=== PATIENT | female | born 1975 | race Caucasian/White ===

== ENCOUNTER 2020-09-26 15:25 | Emergency (ER) | payer OTHER ==
[2020-09-26 15:33] VITALS: RESP 18
[2020-09-26] MEDS ORDERED: SODIUM CHLORIDE 0.9% 1,000 ML IV STA (15:51)
[2020-09-26] MEDS ORDERED: KETOROLAC 15 MG/ML 1 ML VIAL IVP STA (15:51)
[2020-09-26 16:07] LABS: Basophils # (A) 0.1 k/uL (0-0.2); Basophils % (A) 0 %; Eosinophils # (A) 0.3 k/uL (0-0.7); Eosinophils % (A) 2 %; HCT 44.8 % (34.0-46.0); HGB 14.7 gm/dL (11.4-16.0); Lymphocytes # (A) 2.6 k/uL (1.0-4.8); Lymphocytes % (A) 20 %; MCH 30.2 pg (25.0-35.0); MCHC 32.9 g/dL (31.0-37.0); MCV 91.9 fL (80.0-100.0); Mean Platelet Volume 6.4; Monocytes # (A) 0.5 k/uL (0-1.0); Monocytes % (A) 4 %; Neutrophils # (A) 9.5 k/uL (1.3-7.7); Neutrophils % (A) 73 %; Platelet Count 368 k/uL (150-450); RBC 4.87 m/uL (3.80-5.40); RDW 13.6 % (11.5-15.5); WBC 13.1 k/uL (3.8-10.6)
[2020-09-26 16:19] LABS: ALT 22 U/L (4-34); AST 30 U/L (14-36); African American GFR (CKD) >90 (>60 ml/min/1.73 sqM); Albumin 5.1 g/dL (3.5-5.0); Alkaline Phosphatase 72 U/L (38-126); Anion Gap 9 mmol/L; Blood Urea Nitrogen 16 mg/dL (7-17); Calcium 10.3 mg/dL (8.4-10.2); Carbon Dioxide 25 mmol/L (22-30); Chloride 104 mmol/L (98-107); Glucose 132 mg/dL (74-99); Lipase 64 U/L (23-300); Non-African American GFR(CKD) 82 (>60 ml/min/1.73 sqM); Potassium 4.5 mmol/L (3.5-5.1); Sodium 138 mmol/L (137-145); Total Bilirubin 0.5 mg/dL (0.2-1.3); Total Protein 8.6 g/dL (6.3-8.2)
--- NOTE | 2020-09-26 16:56 | CT ---
EXAMINATION TYPE: CT abdomen pelvis wo con DATE OF EXAM: 09/26/2020 COMPARISON: None HISTORY: Right flank pain. CT DLP: 496 mGycm Automated exposure control for dose reduction was used. Images obtained from the diaphragm to the floor the pelvis without contrast. Lung bases are clear. There is no pleural effusion. Heart is normal. There is no pericardial effusion . Liver spleen stomach pancreas appear normal. There is high attenuation in the gallbladder. The bile d ucts are not dilated. There is no adrenal mass. Kidneys have normal size and contour. There is no hydronephrosis. Ureters a re not dilated. There is no retroperitoneal adenopathy. Bladder distends smoothly. There is no inguin al hernia. There is no free fluid in the pelvis. Appendix is posterior and appears normal. Uterus is anteverted. There is no evidence of a pelvic mass. Lumbar vertebra have normal alignment. Disc spaces are fairly normal. Bony pelvis is intact. Hip joints appear intact. There is 6 mm calcification in the pelvis that is probably within the right side of the urinary bladd er. This could be recently passed stone. IMPRESSION: Calcification in the urinary bladder could be recently passed stone. The right kidney shows no hydron ephrosis or hydroureter. Normal appendix. High attenuation in the gallbladder of uncertain significance. This could be vicarious contrast excre tion or related to dense bile containing calcium.
[2020-09-26 17:51] LABS: Amorphous Sediment,Urine Occasional /hpf; Appearance,Urine Clear (Clear); Bilirubin,Urine Negative (Negative); Blood,Urine Trace (Negative); Color,Urine Yellow; Glucose,Urine (UA) Negative (Negative); Hyaline Casts,Urine 4 /lpf (0-2); Ketones,Urine Negative (Negative); Leukocyte Esterase,Urine Negative (Negative); Mucus,Urine Few /hpf; Nitrite,Urine Negative (Negative); PH, Urine 6.5 (5.0-8.0); Protein,Urine Trace (Negative); RBC,Urine 12 /hpf (0-5); Specific Gravity,Urine 1.023 (1.001-1.035); Squamous Epithelial Cell,Urine 2 /hpf (0-4); Urobilinogen,Urine <2.0 mg/dL (<2.0); WBC,Urine 3 /hpf (0-5)
--- NOTE | 2020-09-26 18:20 | ED ---
Abdominal Pain HPI - General Chief Complaint: Abdominal Pain Stated Complaint: kidney stones Source: patient Mode of arrival: wheelchair Limitations: no limitations - History of Present Illness Initial Comments: 45-year-old female with past medical history of asthma and opiate abuse who presents to the emergency department with reported right flank pain. Patient reports the pain has been present for the past week. She was seen by [facility] on Saturday and was diagnosed with a kidney stone. She reports that they recommended she be admitted to the hospital however the patient did not want to do this and she left AGAINST MEDICAL ADVICE. Patient was given a prescr iption for [place]. States that she stopped taking her Suboxone. Made her pain management doctor aware. Reports that she continues to have dysuria and right- sided flank pain. No fevers or chills. No nausea or vomiting. No chest pain or shortness of breath. No fevers or chills. No other alleviating, precipitating or modifying factors - Related Data Previous Rx's Medication Instructions Recorded Ibuprofen [Motrin] 600 mg PO Q6HR PRN #20 tab 08/28/14 Oseltamivir [Tamiflu] 75 mg PO Q12HR #10 cap 09/21/14 traMADol HCl [Ultram] 50 mg PO Q6H PRN #20 tab 09/21/14 Allergies Allergy/AdvReac Type Severity Reaction Status Date / Time No Known Allergies Allergy Verified 09/26/20 15:33 Review of Systems ROS Statement: Those systems with pertinent positive or pertinent negative responses have been documented in the HPI. ROS Other: All systems not noted in ROS Statement are negative. Past Medical History Past Medical History: Asthma Additional Past Medical History / Comment(s): ovarian cyst History of Any Multi-Drug Resistant Organisms: None Reported Past Surgical History: Section Additional Past Surgical History / Comment(s): D&C Past Psychological History: Anxiety Smoking Status: Current every day smoker Past Alcohol Use History: None Reported Past Drug Use History: None Reported General Exam Limitations: no limitations Course Vital Signs 09/26/20 09/26/20 09/26/20 15:27 16:38 18:50 Temperature 98.8 F 98.6 F Pulse Rate 120 H 101 H 102 H Respiratory 18 18 18 Rate Blood Pressure 125/65 109/60 123/93 O2 Sat by Pulse 98 100 100 Oximetry Medical Decision Making - Medical Decision Making Upon arrival patient was placed into room 25. Thorough history and physical exam was performed. IV is established patient is given Toradol for pain control. Laboratory studies were conducted and I did repeat a CT of the mukesh ent's abdomen and pelvis. Lab studies demonstrate a leukocytosis of 13.1. Kidney function is normal at 0.8. Patient is unable to urinate therefore she is bladder scan does demonstrate 40 cc of urine. The patient has straight cath. Does admit to using methamphetamines yesterday. Urinalysis does demonstrate 12 red blood cells. HCG is negative. Patient is sent over for CT of her abdomen and pelvis which demonstrates that the ureteral stone is now located in the urinary bladder. Results are discussed the patient. I did discuss diagnosis, differential treatment options. Patient will be given a bottle of mag citrate as she is requesting to have a bowel movement. Patient does have pain medications at home. She'll be given a strainer and instructed to strain all of her urine. Increase fluid intake. Follow-up with the urologist and primary care doctor. Return to the emergency room for any new or worsening symptoms. Patient was discharged home in stable condition - Lab Data Result diagrams: 09/26/20 15:57 09/26/20 15:57 Lab Results 09/26/20 09/26/20 09/26/20 Range/Units 15:57 15:57 15:57 WBC 13.1 H (3.8-10.6) k/uL RBC 4.87 (3.80-5.40) m/uL Hgb 14.7 (11.4-16.0) gm/dL Hct 44.8 (34.0-46.0) % MCV 91.9 (80.0-100.0) fL MCH 30.2 (25.0-35.0) pg MCHC 32.9 (31.0-37.0) g/dL RDW 13.6 (11.5-15.5) % Plt Count 368 (150-450) k/uL MPV 6.4 Neutrophils % 73 % Lymphocytes % 20 % Monocytes % 4 % Eosinophils % 2 % Basophils % 0 % Neutrophils # 9.5 H (1.3-7.7) k/uL Lymphocytes # 2.6 (1.0-4.8) k/uL Monocytes # 0.5 (0-1.0) k/uL Eosinophils # 0.3 (0-0.7) k/uL Basophils # 0.1 (0-0.2) k/uL Sodium (137-145) mmol/L Potassium (3.5-5.1) mmol/L Chloride (98-107) mmol/L Carbon Dioxide (22-30) mmol/L Anion Gap mmol/L BUN (7-17) mg/dL Creatinine (0.52-1.04) mg/dL Est GFR (CKD-EPI)AfAm (>60 ml/min/1.73 sqM) Est GFR (CKD-EPI)NonAf (>60 ml/min/1.73 sqM) Glucose (74-99) mg/dL Plasma Lactic Acid Carlos (0.7-2.0) mmol/L Calcium (8.4-10.2) mg/dL Total Bilirubin (0.2-1.3) mg/dL AST (14-36) U/L ALT (4-34) U/L Alkaline Phosphatase (38-126) U/L Total Protein (6.3-8.2) g/dL Albumin (3.5-5.0) g/dL Lipase (23-300) U/L Urine Color Yellow Urine Appearance Clear (Clear) Urine pH 6.5 (5.0-8.0) Ur Specific [place] 1.023 (1.001-1.035) Urine Protein Trace H (Negative) Urine Glucose (UA) Negative (Negative) Urine Ketones Negative (Negative) Urine Blood Trace H (Negative) Urine Nitrite Negative (Negative) Urine Bilirubin Negative (Negative) Urine Urobilinogen <2.0 (<2.0) mg/dL Ur Leukocyte Esterase Negative (Negative) Urine RBC 12 H (0-5) /hpf Urine WBC 3 (0-5) /hpf Ur Squamous Epith Cells 2 (0-4) /hpf Amorphous Sediment Occasional H (None) /hpf Hyaline Casts 4 H (0-2) /lpf Urine Mucus Few H (None) /hpf Urine HCG, Qual Not Detected (Not Detectd) 09/26/20 09/26/20 Range/Units 15:57 15:57 WBC (3.8-10.6) k/uL RBC (3.80-5.40) m/uL Hgb (11.4-16.0) gm/dL Hct (34.0-46.0) % MCV (80.0-100.0) fL MCH (25.0-35.0) pg MCHC (31.0-37.0) g/dL RDW (11.5-15.5) % Plt Count (150-450) k/uL MPV Neutrophils % % Lymphocytes % % Monocytes % % Eosinophils % % Basophils % % Neutrophils # (1.3-7.7) k/uL Lymphocytes # (1.0-4.8) k/uL Monocytes # (0-1.0) k/uL Eosinophils # (0-0.7) k/uL Basophils # (0-0.2) k/uL Sodium 138 (137-145) mmol/L Potassium 4.5 (3.5-5.1) mmol/L Chloride 104 (98-107) mmol/L Carbon Dioxide 25 (22-30) mmol/L Anion Gap 9 mmol/L BUN 16 (7-17) mg/dL Creatinine 0.87 (0.52-1.04) mg/dL Est GFR (CKD-EPI)AfAm >90 (>60 ml/min/1.73 sqM) Est GFR (CKD-EPI)NonAf 82 (>60 ml/min/1.73 sqM) Glucose 132 H (74-99) mg/dL Plasma Lactic Acid Carlos 1.2 (0.7-2.0) mmol/L Calcium 10.3 H (8.4-10.2) mg/dL Total Bilirubin 0.5 (0.2-1.3) mg/dL AST 30 (14-36) U/L ALT 22 (4-34) U/L Alkaline Phosphatase 72 (38-126) U/L Total Protein 8.6 H (6.3-8.2) g/dL Albumin 5.1 H (3.5-5.0) g/dL Lipase 64 (23-300) U/L Urine Color Urine Appearance (Clear) Urine pH (5.0-8.0) Ur Specific [place] (1.001-1.035) Urine Protein (Negative) Urine Glucose (UA) (Negative) Urine Ketones (Negative) Urine Blood (Negative) Urine Nitrite (Negative) Urine Bilirubin (Negative) Urine Urobilinogen (<2.0) mg/dL Ur Leukocyte Esterase (Negative) Urine RBC (0-5) /hpf Urine WBC (0-5) /hpf Ur Squamous Epith Cells (0-4) /hpf Amorphous Sediment (None) /hpf Hyaline Casts (0-2) /lpf Urine Mucus (None) /hpf Urine HCG, Qual (Not Detectd) Disposition Clinical Impression: Abdominal pain, Bladder stone, Constipation Disposition: HOME SELF-CARE Condition: Stable Instructions (If sedation given, give patient instructions): Kidney Stones (ED) Additional Instructions: Your kidney stone is now in your bladder. Strain your urine. Increase your fluids. Take the mag citrate for constipation. Drink half the bottle and if you don't have a bowel movement after 4 hours, drink the second half. Follow up with the urologist. Strain your urine. Return to the emergency room for any new or worsening symptoms Is patient prescribed a controlled substance at d/c from ED?: No Referrals: Medardo Heck MD [Primary Care Provider] - 1-2 days Taqueria Walls MD [STAFF PHYSICIAN] - 1-2 days Time of Disposition: 18:42
[2020-09-26] MEDS ORDERED: MAGNESIUM CITRATE 296 ML BOTTLE PO ONE (18:40)
[2020-09-26 18:51] VITALS: BP 123/93; PULSE 102; TEMP 98.6
== END 2020-09-26 18:53 | disposition home or self-care (01) ==
LOC: EC 15:25
DX: N21.0 Calculus in bladder (principal); K59.00 Constipation, unspecified; F17.200 Nicotine dependence, unspecified, uncomplicated
CPT/HCPCS: 36415; 80053; 83605; 83690; 85025; 81001; 81025; 74176; 99284; 96374; 96361; J1885